=== PATIENT | female | born 1970 | race Caucasian/White ===

== ENCOUNTER 2023-03-16 01:03 | Day surgery (SDC) | payer BC, SELFPAY ==
[2023-02-17 08:55] VITALS: BMI 37.1
--- NOTE | 2023-03-03 13:40 | PC.NURSE ---
verified with pt new date and time of procedure. pt denies any changes in medication or medical history since last PAT call. pt denies any questions.
[2023-03-16 09:14] VITALS: BP 144/91; PULSE 72; RESP 18; TEMP 36.9; O2SAT 100
[2023-03-16] MEDS: LACTATED RINGERS 1,000 ML 150 ML IV CONT (09:25)
--- NOTE | 2023-03-16 09:52 | P.PNAN_ITS ---
Anes - Initial Pre Proc Eval Procedure: Operation Date: 03/16/23 10:30 Proposed Procedures p Esophagogastroduodenoscopy & Colonoscopy - Neri Gallagher MD Date/Time: 03/16/23 09:52 Surgeon: Neri Gallagher MD Pre Op Diagnosis: GERD, Dysphagia, neoplasm screening Patient Data Age: 52 Gender: F Height: 1.68 m Weight: 101.8 kg Last Vital Signs Temp 98.4 F 03/16/23 09:14 Pulse 72 03/16/23 09:14 Resp 18 03/16/23 09:14 BP 144/91 H 03/16/23 09:14 Pulse Ox 100 03/16/23 09:14 O2 Del Method Room Air 03/16/23 09:14 Allergies Allergy/AdvReac Type Severity Reaction Status Date / Time No Known Allergies Allergy Mild Verified 03/16/23 09:13 Home Medications Medication Instructions Recorded Confirmed Type cetirizine 10 mg tablet (Zyrtec) 10 mg PO DAILY PRN ALLERGIES 02/17/23 02/17/23 History loratadine 10 mg tablet (Claritin) 10 mg PO DAILY PRN ALLERGIES 02/17/23 02/17/23 History phentermine 37.5 mg tablet 37.5 mg PO DAILY 02/17/23 02/17/23 History Patient hx anesthesia problems: post op nausea/vomiting Family hx anesthesia problems: none Results Review: All pre-operative results and documents have been reviewed as part of the pre- operative evaluation. [facility] Family History Family History (Updated 02/29/16 @ 23:21 by DOCTOR UNKNOWN) Mother Family history of osteoarthritis Patient's mother is in good health Father Patient's father is in good health Family history of allergic disorder Sibling Patient's sister is in good health Patient's brother is in good health Family history of allergic disorder Grandparent Family history of malignant neoplasm of breast, Onset Age: 30 Social History Social History Smoking status: Never smoker Alcohol intake: current Substance use: never Substance use type: does not use Living arrangements: with family Spiritual care concerns: No Anes - Eval Final PreProcedure Day of Procedure 03/16/23 09:52 Patient weight: obese Heart: regular rate and rhythm Lungs: clear to auscultation Airway: Mallampati scale class II Neurological: alert and oriented Last oral intake: >/= 8 hours ASA classification: II Emergent: no Anesthetic plan: proceed Anesthesia type and monitoring: general GIVS and standard monitoring Results Review: All pre-operative results and documents have been reviewed as part of the pre- operative evaluation. Informed Consent: The patient's anesthetic plan and its attendant risks and benefits were discussed with the patient/family/POA. Questions were solicited and answers provided to the satisfaction of the patient/family/POA.
--- NOTE | 2023-03-16 09:54 | PM.HPGS ---
History of Present Illness History of Present Illness Consent: Risks, benefits, and alternatives have been discussed and questions answered. Patient agrees to proceed with procedure. Chief complaint: GERD, Dysphagia, neoplasm screening Narrative: Belinda Fitzgerald is a 52 year old female with gerd better on ppi prn, also few times noted food getting stuck, mother had stomach cancer. Never had scopes. Review of Systems Constitutional: Constitutional: Denies headache(s) and Denies weakness Eyes: Eyes: Denies blurry vision ENT: Reports Normal hearing present, Denies headache(s) and Denies neck pain Cardiovascular: Cardiovascular: Denies chest pain and Denies dyspnea Respiratory: Respiratory: Denies dyspnea Gastrointestinal: Gastrointestinal: Reports no additional gastrointestinal complaints Genitourinary: Genitourinary: Denies dysuria Musculoskeletal: Musculoskeletal: Denies neck pain Integumentary/Breasts: Skin/Breast: Denies dry skin Neurologic: Reports Normal hearing present, Denies headache(s) and Denies weakness Psychiatric: Psychiatric: Denies anxiety Endocrine: Endocrine: Denies change in body appearance Hematologic/Lymphatic: Hematologic/Lymphatic: Denies easy bleeding Allergic/Immunologic: Allergic/Immunologic: Denies urticaria PMFSH Past Medical History Medical History (Updated 03/16/23 @ 09:55 by Neri Gallagher MD) Colon cancer screening GERD (gastroesophageal reflux disease) Family History Family History (Updated 02/29/16 @ 23:21 by DOCTOR UNKNOWN) Mother Family history of osteoarthritis Patient's mother is in good health Father Patient's father is in good health Family history of allergic disorder Sibling Patient's sister is in good health Patient's brother is in good health Family history of allergic disorder Grandparent Family history of malignant neoplasm of breast, Onset Age: 30 Social History Social History Smoking status: Never smoker Alcohol intake: current Substance use: never Substance use type: does not use Living arrangements: with family Spiritual care concerns: No Meds Home Medications and Allergies Home Medications Medication Instructions Recorded Confirmed Type cetirizine 10 mg tablet (Zyrtec) 10 mg PO DAILY PRN ALLERGIES 02/17/23 02/17/23 History loratadine 10 mg tablet (Claritin) 10 mg PO DAILY PRN ALLERGIES 02/17/23 02/17/23 History phentermine 37.5 mg tablet 37.5 mg PO DAILY 02/17/23 02/17/23 History Allergies Allergy/AdvReac Type Severity Reaction Status Date / Time No Known Allergies Allergy Mild Verified 03/16/23 09:13 Vital Signs Vital Signs - 24 hr 03/16/23 09:14 Temperature 98.4 F Pulse Rate 72 Respiratory Rate 18 Blood Pressure 144/91 H Pulse Oximetry 100 Oxygen Delivery Room Air Exam Const: General: comfortable and no acute distress HENMT: Face/Nose/Sinus: Normal nares present Eyes: General: appearance normal, both eyes and all related structures Neck: Neck: no JVD Resp: Auscultation: clear to auscultation bilaterally Cardio: Rate: regular rate Rhythm: regular rhythm GI: Inspection: non-distended GI Palp: Yes Soft to palpation Skin: General skin exam: normal color Neuro: General: gait normal Speech: normal speech Extrem: General: normal to inspection Psych: Mental Status: mental status grossly normal Assessment and Plan Assessment and plan (1) GERD (gastroesophageal reflux disease): Code(s): K21.9 - Gastro-esophageal reflux disease without esophagitis Status: Acute Assessment and Plan: egd with bx (2) Colon cancer screening: Code(s): Z12.11 - Encounter for screening for malignant neoplasm of colon Status: Acute Assessment and Plan: colonoscopy
[2023-03-16] MEDS: BENZOCAINE (*SP) 60 ML SPRAY CAN (HURRICAINE) 1 SPRAY MUCOUS MEM (10:07)
--- NOTE | 2023-03-16 10:17 | SUR.OPER ---
EGD completed at 1009; colonoscopy started at 1013
[2023-03-16 10:24] VITALS: BP 113/64; PULSE 85; RESP 20; O2SAT 100
[2023-03-16 10:34] VITALS: BP 137/100; PULSE 75; RESP 18; O2SAT 100
[2023-03-16 10:44] VITALS: BP 147/87; PULSE 71; RESP 19; O2SAT 100
== END 2023-03-16 10:55 | disposition home or self-care (01) ==
PROVIDERS: PCP Emergency Medicine; Visit Provider Internal Medicine Gastroenterology
PROC: 0DJ08ZZ Inspection of Upper Intestinal Tract, Via Natural or Artificial Opening Endoscopic (ICD-10-PCS; CPT 43235; principal; 2023-03-16 10:30)
DX: Z12.11 Encounter for screening for malignant neoplasm of colon (principal); D12.2 Benign neoplasm of ascending colon; K57.30 Diverticulosis of large intestine without perforation or abscess without bleeding; K64.8 Other hemorrhoids; K21.9 Gastro-esophageal reflux disease without esophagitis; R13.10 Dysphagia, unspecified; K29.70 Gastritis, unspecified, without bleeding; E66.9 Obesity, unspecified; Z68.36 Body mass index [BMI] 36.0-36.9, adult
CPT/HCPCS: 43239; 45380; 88305; J7120